=== PATIENT | male | born 1975 | race Hispanic/Latino ===

== ENCOUNTER 2023-04-04 17:05 | Emergency (ER) | payer BC, OTHER ==
[~2023-04-04] VITALS: Ht 180.3 cm; Wt 117.9 kg
[2023-04-04 18:10] VITALS: BP 145/78; PULSE 84; RESP 18; O2SAT 98
== END 2023-04-04 18:11 | disposition home or self-care (01) ==
LOC: EDH 17:05
DX: R03.0 Elevated blood-pressure reading, without diagnosis of hypertension (principal)
CPT/HCPCS: 99281

== ENCOUNTER 2024-07-08 11:18 | Emergency (ER) | payer BC ==
[~2024-07-08] VITALS: Ht 180.3 cm; Wt 120.2 kg
--- NOTE | 2024-07-08 11:25 | ERN ---
ED Note History of Present Illness Stated Complaint: NUMBNESS Chief Complaint: Numbness Time Seen by MD: 11:21 Dictation: PATIENT IS A 48-YEAR-OLD FEMALE COMING IN TODAY WITH COMPLAINTS OF HIS LEFT THIGH FEELING WARM AND NUMB ONSET YESTERDAY. HE DENIES ANY PAIN NO FEVER NO CHILLS NO NAUSEA VOMITING. LEG IS WARM TO TOUCH, STATES HE HAD A PRIOR VASCULAR SURGERY TO AN ARTERY SEVERAL YEARS AGO. STATES HE IS STATUS POST A VENTRAL HERNIA REPAIR IN [facility] AFTER HIS RELEASE COORDINATOR SENT HIM TO THE HOSPITAL IN [place]. DISTAL NEUROVASCULAR CMS INTACT TO LEFT LEG LEG IS WARM TO TOUCH NO SWELLING NO ERYTHEMA NO REDNESS Allergies: Coded Allergies: No Known Drug Allergies (Unverified Allergy, Unknown, 04/04/23) Past Medical History Past Medical History: No Pertinent History Additional Past Medical Hx: DENIES Surgical History: Other Surgical History Other: LEFT LEG BYPASS SURGERY AT AGE 18 RN Note Reviewed/Agreed w/PFSH: Yes Review of System Dictation CONSTITUTIONAL: NEGATIVE EXCEPT FOR HPI HEAD/FACE: NEGATIVE EXCEPT FOR HPI EENT: NEGATIVE EXCEPT FOR HPI RESPIRATORY: NEGATIVE EXCEPT FOR HPI GASTROINTESTINAL/ABDOMINAL: NEGATIVE EXCEPT FOR HPI GENITOURINARY: NEGATIVE EXCEPT FOR HPI MUSCULOSKELETAL: NEGATIVE EXCEPT FOR HPI LEFT LEG THIGH NUMBNESS FEELS WARM INTEGUMENTARY: NEGATIVE EXCEPT FOR HPI NEUROLOGICAL/PSYCH: NEGATIVE EXCEPT FOR HPI HEMATOLOGIC/LYMPHATIC: NEGATIVE EXCEPT FOR HPI ALL SYSTEMS NEGATIVE, EXCEPT NOTED ABOVE. 13 POINT REVIEW OF SYSTEMS ASSESSED AND ALL NEGATIVE EXCEPT FOR ABOVE. Initial Vital Sign VS Vital Signs Date Time Temp Pulse Resp B/P (MAP) Pulse Ox O2 Delivery O2 Flow Rate FiO2 07/08/24 11:21 98.2 94 18 119/95 98 07/08/24 12:43 Room Air* 0 21 Physical Exam Dictation VITAL SIGNS REVIEWED NO PAIN GENERAL APPEARANCE: ALERT, ORIENTED X 3, NO ACUTE DISTRESS, WELL DEVELOPED, NOURISHED. HEAD AND FACE: NON-TRAUMATIC. EYES: PERRL, PINK CONJUNCTIVAS, EYELID NO TRAUMA, ANTERIOR CHAMBER WITH ARCUS SENILIS. EARS: PINNAS INTACT AND NO SIGNS OF TRAUMA OR ERYTHEMA EAR CANALS CLEAR AND NO DISCHARGE TM NO ERYTHEMA NOSE: NO DISCHARGE, NO BLEEDING. OROPHARYNX: MOUTH NORMAL, TONGUE PINK, PHARYNX CLEAR,NO ERYTHEMA, TONSILS NO EXUDATES, NO ABSCESSES NOTED, MUCOUS MEMBRANE MOIST NECK: SUPPLE, NON-TENDER, NO THYROMEGALY, NO MASSES, NO JVD, NO BRUITS BREAST:DEFERRED CHEST:NO TENDERNESS, NO CREPITUS, NO PARADOXICAL MOVEMENT, NO RETRACTIONS LUNGS:CLEAR, WELL-VENTILATED, SYMMETRIC, NO RALES, NO WHEEZING, NO RHONCHI, NO STRIDOR, GOOD BREATH SOUNDS BILATERALLY HEART: REGULAR RATE, REGULAR RHYTHM, NO MURMUR, NO GALLOPS VASCULAR: NO PERIPHERAL EDEMA, DISTAL NEUROVASCULAR CMS INTACT TO LEFT LEG ABDOMEN: SOFT, POSITIVE BOWEL SOUNDS, NONDISTENDED, NO GUARDING, NONTENDER, NO REBOUND, NO MASSES NO HEPATOMEGALY, NO SPLENOMEGALY, NO KERN'S SIGN, NO HERNIAS. RECTAL: DEFERRED GENITAL: DEFERRED NEUROLOGICAL: NORMAL SPEECH, MOTOR FUNCTION INTACT, SENSORY FUNCTION INTACT MUSCULOSKELETAL: NECK NONTENDER, FULL RANGE OF MOTION, BACK NONTENDER, FULL RANGE OF MOTION, EXTREMITIES: NONTENDER, FULL RANGE OF MOTION LEFT LEG WARM TO TOUCH SKIN: COLOR PINK, DRY, NO TURGOR, NO RASH, NO LACERATIONS, NO ABRASIONS, NO CONTUSIONS. LYMPHATIC: DEFERRED Results (Laboratory/Radiology) Laboratory/Radiology Laboratory Tests Test 07/08/24 12:05 White Blood Count 9.2 K/uL (4.8-10.8) Red Blood Count 5.03 MIL/uL (4.50-6.20) Hemoglobin 15.0 g/dL (14.0-18.0) Hematocrit 43.7 % (42-54) Mean Corpuscular Volume 86.9 fL (79-99) Mean Corpuscular Hemoglobin 29.8 pg (27.0-33.0) Mean Corpuscular Hemoglobin Concent 34.3 g/dL (32.0-36.0) Red Cell Distribution Width 12.6 % (11.0-15.5) Platelet Count 239 K/uL (130-400) Mean Platelet Volume 11.1 fL (7.5-10.5) H Immature Granulocyte % (Auto) 0.3 % (0-1) Neutrophils (%) (Auto) 54.3 % (40.0-77.0) Lymphocytes (%) (Auto) 35.6 % (21.0-51.0) Monocytes (%) (Auto) 7.7 % (3.0-13.0) Eosinophils (%) (Auto) 1.7 % (0.0-8.0) Basophils (%) (Auto) 0.4 % (0.0-5.0) Neutrophils # (Auto) 5.0 K/uL (1.8-7.7) Lymphocytes # (Auto) 3.3 K/uL (1.0-4.8) Monocytes # (Auto) 0.7 K/uL (0.1-1.0) Eosinophils # (Auto) 0.16 K/uL (0.00-0.70) Basophils # (Auto) 0.04 K/uL (0.00-0.20) Absolute Immature Granulocyte (auto 0.03 K/uL (0-1) Nucleated Red Blood Cells 0.0 % (0.0-0.19) Sodium Level 140 mmol/L (136-145) Potassium Level 4.0 mmol/L (3.5-5.1) Chloride Level 103 mmol/L (101-111) Carbon Dioxide Level 28 mmol/L (21-32) Blood Urea Nitrogen 10 mg/dL (7-18) Creatinine 1.0 mg/dL (0.5-1.3) Glomerular Filtration Rate Calc 93 mL/min (>90) Random Glucose 133 mg/dL (70-105) H Total Calcium 8.7 mg/dL (8.5-10.1) TWELVE 20, ULTRASOUND DOPPLER OF LEFT LEG DEMONSTRATES TRIPHASIC FLOW FROM FEMORAL ARTERY TO FOOT. Labs Reviewed?: Yes ED Course ED Course Orders Procedure Category Date Status Time Us Arterial Unila Low US 07/08/24 Resulted Ext Dupl 11:22 Cbc With Differential LAB 07/08/24 Complete 11:22 Basic Metabolic Panel LAB 07/08/24 Complete 11:22 Vital Signs Date Time Temp Pulse Resp B/P (MAP) Pulse Ox O2 Delivery O2 Flow Rate FiO2 07/08/24 12:43 98.2 90 18 119/95 98 Room Air* 0 21 07/08/24 11:21 98.2 94 18 119/95 98 1232, PATIENT IS HEMODYNAMICALLY STABLE TRIPHASIC FLOW THROUGHOUT LEFT LEG. LABS UNREMARKABLE EXCEPT FOR HYPER GLYCEMIA. DISCHARGED HOME TO SEE HIS DOCTOR TUESDAY Medical Decision Making MDM MEDICAL DISCHARGE MAKING BASED ON ULTRASOUND DOPPLER LEFT LEG AND BASIC LABS. ULTRASOUND IS NEGATIVE WITH TRIPHASIC FLOW ONLY REMARKABLE LAP FINDING IS HYPERGLYCEMIA DISCHARGED HOME TO FOLLOW UP WITH HIS PRIMARY CARE DOCTOR IN 1-2 DAYS CONTINUE ALL MEDICATIONS AND TREATMENTS AT HOME DX & DISP Disposition: Discharge Departure Impression: Primary Impression: Paresthesia of left leg Additional Impression: Uncontrolled diabetes mellitus Condition: Stable Additional Instructions: FOLLOW-UP WITH PRIMARY CARE PROVIDER IN 1 TO 2 DAYS. TAKE MEDICATIONS DIRECTED HERE IN THE EMERGENCY ROOM. OKAY TO CONTINUE HOME MEDICATIONS UNLESS OTHERWISE DISCUSSED DURING YOUR VISIT IN THE EMERGENCY ROOM TODAY. RETURN TO YOUR NEAREST EMERGENCY ROOM IF SYMPTOMS WORSEN OR IF THERE IS NO IMPROVEMENT. CALL 911 IF YOU NEED IMMEDIATE ASSISTANCE. TAKE TYLENOL OR MOTRIN EUDG-QRV-RNIPTIV NEEDED AND IF NO CONTRAINDICATIONS ARE PRESENT. INCREASE ORAL HYDRATION. A WOUND CULTURE OR URINE CULTURE WAS ORDERED HERE IN THE EMERGENCY ROOM DEPARTMENT PLEASE FOLLOW-UP WITH PRIMARY CARE PROVIDER AND ADVISE THEM TO GET REPEAT PORTS FROM OUR FACILITY. IF YOU HAD ANY ROSALVA WRAP/SPLINTS THAT WERE APPLIED HERE, PLEASE DO NOT REMOVE THEM UNTIL YOU SEE YOUR PRIMARY CARE OR SPECIALTY. CONTINUE ALL MEDICATIONS AND TREATMENTS AT HOME, FOLLOW UP WITH YOUR PRIMARY CARE DOCTOR IN 1-2 DAYS FOR FOLLOW UP. Referrals: ADRIANNE YOO PA-C (PCP) Time of Disposition: 12:35 I have reviewed the case, and I agree with, Diagnosis and Plan ATTESTATION BY PHYSICIAN I PERFORMED THE SUBSTANTIVE PORTION OF THE VISIT. I HAVE REVIEWED AND PERSONALLY MADE AND APPROVED THE MANAGEMENT PLAN THAT IS DOCUMENTED IN THE NOTE BY MYSELF FOR THE A PP. I ACKNOWLEDGED FOR RESPONSIBILITY FOR THE PATIENT'S MANAGEMENT PLAN. IVAN CLEMONS NP Jul 08, 2024 11:25 RENE FRANCIS MD Jul 08, 2024 17:15
[2024-07-08 12:15] LABS: BASOPHILS # (AUTO) 0.04 K/uL (0.00-0.20); BASOPHILS % (AUTO) 0.4 % (0.0-5.0); EOSINOPHILS # (AUTO) 0.16 K/uL (0.00-0.70); EOSINOPHILS % (AUTO) 1.7 % (0.0-8.0); HEMATOCRIT 43.7 % (42-54); IMMATURE GRANULOCYTE ABSOLUTE 0.03 K/uL (0-1); LYMPHOCYTES # (AUTO) 3.3 K/uL (1.0-4.8); LYMPHOCYTES % (AUTO) 35.6 % (21.0-51.0); MEAN CORPUSCULAR HEMOGLOBIN 29.8 pg (27.0-33.0); MEAN CORPUSCULAR HGB CONC 34.3 g/dL (32.0-36.0); MEAN CORPUSCULAR VOLUME 86.9 fL (79-99); MONOCYTES # (AUTO) 0.7 K/uL (0.1-1.0); MONOCYTES % (AUTO) 7.7 % (3.0-13.0); NEUTROPHILS % (AUTO) 54.3 % (40.0-77.0); PLATELET COUNT (AUTO) 239 K/uL (130-400); RED BLOOD CELL COUNT(AUTO) 5.03 MIL/uL (4.50-6.20); RED CELL DISTRIBUTION WIDTH 12.6 % (11.0-15.5); WHITE BLOOD COUNT (AUTO) 9.2 K/uL (4.8-10.8)
--- NOTE | 2024-07-08 12:22 | HMCIMG ---
ULTRASOUND ARTERIAL DUPLEX LEFT LOWER EXTREMITY, UNILATERAL INDICATION: Left thigh pain. History of peripheral arterial disease with stent placement TECHNIQUE: Routine grayscale, color Doppler, and power Doppler ultrasound of the left lower extremity arteries were obtained. 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 Anterior Tibial 37 distally Posterior Tibial 70 Dorsalis Pedis 56 Triphasic flow along the left lower extremity arterial system. IMPRESSION: No evidence for high-grade flow-rate limiting stenosis. Parameters as reported.
[2024-07-08 12:43] VITALS: BP 119/95; PULSE 90; RESP 18; TEMP 98.2; O2SAT 98
== END 2024-07-08 12:45 | disposition home or self-care (01) ==
LOC: EDH 11:18
DX: R20.0 Anesthesia of skin (principal); M79.605 Pain in left leg; E11.65 Type 2 diabetes mellitus with hyperglycemia; Z98.890 Other specified postprocedural states
CPT/HCPCS: 36415; 80048; 85025; 93926; 99284

== ENCOUNTER 2024-07-14 15:53 | Emergency (ER) | payer BC ==
[~2024-07-14] VITALS: Ht 180.3 cm; Wt 120.2 kg
--- NOTE | 2024-07-14 16:24 | ERN ---
General Chief Complaint: Chest Pain Stated Complaint: FEVERS, BODYACHES, CP Time Seen by MD: 16:00 History of Present Illness Initial Comments 48-year-old male who presents for fever body aches. Patient reports he had an onset of fever and body aches beginning today. He denies any sore throat cough congestion vomiting diarrhea. He took a Tylenol at home prior to arrival. Of note, patient did have a laparoscopic hernia repair nine days ago in [place]. He denies any abdominal pain or tenderness currently. Medical history: Diabetes Allergies: Coded Allergies: No Known Drug Allergies (Unverified Allergy, Unknown, 04/04/23) Home Meds Active Scripts Amoxicillin/Potassium Clav (Amox Tr-K Clv 875-125 mg Tab) 875 Mg-125 Mg Tablet, 1 TAB PO BID for 10 Days, #20 TAB 0 Refills Prov:DIANE BARFIELD 07/14/24 Past Medical History Past Medical History: Diabetes-Type II Medical History Other: ABD HERNIA Past Surgical History: Other Surgical History Other: ABD HERNIA REPAIR ROS Dictation CONSTITUTIONAL: Fever EENT: No eye pain, no blurred vision, no tearing, no double vision, no ear pain, no ear discharge, no nose pain, no nasal congestion, no throat pain, no throat swelling, no mouth pain. RESPIRATORY: No cough, no orthopnea, no SOB, no stridor, no wheezing. CARDIOVASCULAR: No chest pain, no edema, no palpitations, no syncope. GASTROINTESTINAL/ABDOMINAL: No abdominal pain, no constipation, no diarrhea, no nausea, no vomiting. GENITOURINARY: No abnormal discharge, no dysuria, no frequent urination, no hematuria. No complaints of pain in the genitals. MUSCULOSKELETAL: No back pain, no gout, no joint pain, no joint swelling, no muscle pain, no muscle stiffness, no neck pain. INTEGUMENTARY: No change in color, no change in hair/nails, no dryness, no lesion, no lumps, no rash. NEUROLOGICAL/PSYCH: No anxiety, not depressed, no emotional problem, no headac he, no numbness, no pre-existing deficit, no history of seizures, no tremors, no weakness. HEMATOLOGIC/LYMPHATIC: Not anemic, no history of blood clots, no apparent bleeding, no bruising, glands not swollen. All Systems Negative, Except as Noted. Physical Exam Physical Exam Dictation VITAL SIGNS: Reviewed. GENERAL APPEARANCE: Alert, oriented x3, no acute distress, obese. HEAD AND FACE: Non-traumatic. EYES: PERRL, pink conjunctivas, eyelid no trauma, anterior chamber clear. EARS: Pinnas intact and no signs of trauma or erythema. Ear canals clear and no discharge. TMs no erythema. NOSE: No discharge, no bleeding. OROPHARYNX: Mouth normal, teeth no caries, tongue pink. Pharynx clear, no erythema. Tonsils no exudates, no abscesses noted. Mucous membrane moist. NECK: Supple, non-tender, no thyromegaly, no masses, no JVD, no bruits. BREAST: Deferred. CHEST: No tenderness, no crepitus, no paradoxical movement, no retractions. LUNGS: Clear, well-ventilated, symmetric, no rales, no wheezing, no rhonchi, no stridor, good breath sounds bilaterally. HEART: Regular rate, regular rhythm, no murmur, no gallops. VASCULAR: No peripheral edema. ABDOMEN: Soft, positive bowel sounds, nondistended, no guarding, nontender, no rebound, no masses no hepatomegaly, no splenomegaly, no Partt's sign, no hernias. RECTAL: Deferred. GENITAL: Deferred. NEUROLOGICAL: Normal speech, gross motor function intact, gross sensory function intact. MUSCULOSKELETAL: Neck nontender, full range of motion, back nontender, full range of motion. EXTREMITIES: Nontender, full range of motion. SKIN: Color pink, dry, no turgor, no rash, no lacerations, no abrasions, no contusions. LYMPHATICS: Deferred. Results Laboratory and Microbiology Lab and Micro Result Laboratory Tests Test 07/14/24 16:30 07/14/24 16:33 07/14/24 16:53 07/14/24 17:48 Influenza Type A Antigen Negative For Type A Influenza Type B Antigen Negative For Type B SARS-CoV-2 Antigen (Rapid) PRESUMPTIVE NEGATIVE White Blood Count 5.5 K/uL (4.8-10.8) Red Blood Count 4.79 MIL/uL (4.50-6.20) Hemoglobin 14.3 g/dL (14.0-18.0) Hematocrit 40.9 % (42-54) L Mean Corpuscular Volume 85.4 fL (79-99) Mean Corpuscular Hemoglobin 29.9 pg (27.0-33.0) Mean Corpuscular Hemoglobin Concent 35.0 g/dL (32.0-36.0) Red Cell Distribution Width 12.2 % (11.0-15.5) Platelet Count 177 K/uL (130-400) Mean Platelet Volume 11.1 fL (7.5-10.5) H Immature Granulocyte % (Auto) 0.4 % (0-1) Neutrophils (%) (Auto) 69.0 % (40.0-77.0) Lymphocytes (%) (Auto) 13.9 % (21.0-51.0) L Monocytes (%) (Auto) 14.5 % (3.0-13.0) H Eosinophils (%) (Auto) 1.8 % (0.0-8.0) Basophils (%) (Auto) 0.4 % (0.0-5.0) Neutrophils # (Auto) 3.8 K/uL (1.8-7.7) Lymphocytes # (Auto) 0.8 K/uL (1.0-4.8) L Monocytes # (Auto) 0.8 K/uL (0.1-1.0) Eosinophils # (Auto) 0.10 K/uL (0.00-0.70) Basophils # (Auto) 0.02 K/uL (0.00-0.20) Absolute Immature Granulocyte (auto 0.02 K/uL (0-1) Nucleated Red Blood Cells 0.0 % (0.0-0.19) Sodium Level 136 mmol/L (136-145) Potassium Level 3.8 mmol/L (3.5-5.1) Chloride Level 101 mmol/L (101-111) Carbon Dioxide Level 25 mmol/L (21-32) Blood Urea Nitrogen 9 mg/dL (7-18) Creatinine 0.9 mg/dL (0.5-1.3) Glomerular Filtration Rate Calc 106 mL/min (>90) Random Glucose 176 mg/dL (70-105) H Lactic Acid Level 2.8 mmol/L (0.8-2.5) H Total Calcium 8.5 mg/dL (8.5-10.1) Total Creatine Kinase 195 U/L (21-232) B-Type Natriuretic Peptide 6 pg/mL (0-100) Procalcitonin 0.07 ng/mL (0.05-0.5) Troponin I < 0.05 ng/mL (0.00-0.05) Urine Color LIGHT-YELLOW (YELLOW) Urine Appearance CLEAR (CLEAR) Urine pH 5.5 (5.0-8.0) Urine Specific [place] 1.029 (1.001-1.031) Urine Protein NEGATIVE mg/dL (NEGATIVE) Urine Glucose (UA) NEGATIVE mg/dL (NEGATIVE) Urine Ketones NEGATIVE mg/dL (NEGATIVE) Urine Occult Blood NEGATIVE (NEGATIVE) Urine Nitrate NEGATIVE (NEGATIVE) Urine Bilirubin NEGATIVE mg/dL (NEGATIVE) Urine Urobilinogen 0.2 mg/dL (0.2-1.0) Urine Leukocyte Esterase NEGATIVE [place]/uL Urine RBC 0-1 /HPF (0-1) Urine WBC 0-1 /HPF (0-1) Urine Bacteria None /HPF (None Seen) MDM CC: Fever or body aches Historian: Patient Comorbidities: Diabetes, recent laparoscopic hernia repair On clinical exam, abdomen is soft nontender nondistended. The wound from the laparoscopic hernia appears to be well healing. Limitations by social determinants of health: None Differential diagnosis includes sepsis, infection, viral URI, other. EKG: Sinus tachycardia rate 116 normal axis good R progression intervals stable no STEMI. Interpreted by me. CXR (independently interpreted by me): no focal infiltrates or abnormalities. CT Abdomen/pelvis with contrast (independently interpreted by me): I do not see any surgical pathology or free air. There is a bit of inflammation in the subcutaneous tissue near the hernia repair no obvious abscesses. Labs ( independently ordered and interpreted by me ): No leukocytosis, no shift or bands. Chemistry shows the lactic 2.8 otherwise unremarkable. Troponin normal procalcitonin normal BNP normal. Urinalysis normal. Flu SARS negative. Patient received 2 L normal saline and Toradol here in the ER. He also received a dose of Ativan IV because he is quite anxious to get the CT scan. There may be a bit of infection / inflammation at the subcutaneous area of the incision site from his hernia repair. No obvious abscesses. There is no other obvious source of infection, so we will treat with some antibiotics (Augmentin) that can cover skin complications. Patient is agreeable to this plan. We will DC. REASON: CHEST PAIN ORDERING PHYSICIAN: DIANE BARFIELD DO PROCEDURE: CXR1VW - CHEST 1VW INDICATION: CHEST PAIN TECHNIQUE: CHEST 1VW COMPARISON: None FINDINGS/IMPRESSION: No acute consolidation or pleural effusion. Cardiac silhouette is within normal limits. Mild degenerative changes of the spine. The visualized upper abdomen appears unremarkable. REASON: fever, recent hernia repair ORDERING PHYSICIAN: DIANE BARFIELD DO PROCEDURE: ABD PEL W - CT ABDOMEN/PELVIS W/CONTRAST CT ABDOMEN/PELVIS W/CONTRAST HISTORY: fever, recent hernia repair TECHNIQUE: CT ABDOMEN/PELVIS W/CONTRAST Omnipaque contrast was used. Oral contrast was not given. Coronal and sagittal reformats were obtained. CT was performed with one or more of the following dose reduction techniques: Automated exposure control, adjustment of the mA and/or kV according to the patient's size, or use of the iterative reconstruction technique. Comparison: None. FINDINGS: No pulmonary consolidation or pleural effusion is seen. There is hepatic steatosis. No calcified gallstone is seen. The spleen, pancreas, and adrenal glands are within normal limits. No hydronephrosis. The urinary bladder is partially distended. Subcutaneous fat stranding seen in the umbilical area which may may represent recent postoperative changes versus inflammatory/infectious changes. No drainable fluid collection is seen. There is no bowel obstruction. Normal appendix. Degenerative changes of the spine. Visualized aorta is normal in caliber. IMPRESSION: Subcutaneous fat stranding seen in the umbilical area which may may represent recent postoperative changes versus inflammatory/infectious changes. No drainable fluid collection is seen. ED Course Orders Procedure Category Date Status Time Vital Signs Per CPOE 07/14/24 Transmitted Routine 16:02 B-Type Natriuretic LAB 07/14/24 Complete Peptide 16:02 Chest 1vw RAD 07/14/24 Resulted 16:02 12 Lead Ekg Tracing- EKG 07/14/24 Logged Technical 16:02 Oxygen By Nc/Pulse Ox CPOE 07/14/24 Transmitted 16:02 Maintain Iv CPOE 07/14/24 Transmitted 16:02 Iv Insertion CPOE 07/14/24 Transmitted 16:02 Cardiac Monitoring CPOE 07/14/24 Transmitted 16:02 Pulse Oximetry With CPOE 07/14/24 Transmitted Vs And Prn 16:02 Cbc With Differential LAB 07/14/24 Complete 16:02 Activity: Br W/Brp CPOE 07/14/24 Transmitted With Assist 16:02 Creatine Kinase, Total LAB 07/14/24 Complete 16:02 Troponin Poc Order LAB 07/14/24 Complete Only 16:02 Bedside Troponin-I LAB.ER 07/14/24 Complete (Poc) 16:02 Basic Metabolic Panel LAB 07/14/24 Complete 16:02 Influenza Type A & B, LAB 07/14/24 Complete Rapid 16:10 Covid19 (Sars Antigen LAB 07/14/24 Complete Rapid) 16:10 Procalcitonin LAB 07/14/24 Complete 16:10 Blood Cult YOVANY 07/14/24 In Process 16:10 Lactic Acid LAB 07/14/24 Complete 16:10 Urinalysis LAB 07/14/24 Complete W/Microscopic 16:10 0.9%Nacl 1000ml (Ns PHA 07/14/24 Complete 1000ml) 16:30 Ketorolac PHA 07/14/24 Complete Tromethamine 15mg/Ml 16:30 Ct Abdomen/Pelvis CT 07/14/24 Resulted W/Contrast 16:21 Iohexol (Omnipaque) PHA 07/14/24 Complete 16:45 Lorazepam 2 Mg PHA 07/14/24 Complete (Ativan) 17:30 Current Medications Medications (Trade) Dose Ordered Sig/Jules Route PRN Reason Start Time Stop Time Status Last Admin Dose Admin Iohexol (Omnipaque) 75 ml STK-MED ONCE IV 07/14/24 16:45 07/14/24 16:45 DC Ketorolac Tromethamine (toRADol) 15 mg ONCE ONCE IV 07/14/24 16:30 07/14/24 16:31 DC 07/14/24 16:48 Lorazepam (AtiVAN) 1 mg ONCE ONCE IVP 07/14/24 17:30 07/14/24 17:31 DC 07/14/24 17:14 Sodium Chloride 2,000 ml @ 0 mls/hr ONCE ONCE IV 07/14/24 16:30 07/14/24 16:31 DC 07/14/24 16:48 Vital Signs Date Time Temp Pulse Resp B/P (MAP) Pulse Ox O2 Delivery O2 Flow Rate FiO2 07/14/24 18:18 97.5 99 18 129/82 98 Room Air* 0 07/14/24 16:56 114 18 114/74 95 Room Air* 0 07/14/24 16:54 99.7 114 20 135/95 0 Room Air* 0 07/14/24 15:58 99.5 116 18 137/91 97 Room Air 0 DX & DISP Disposition: Discharge Departure Impression: Primary Impression: Fever Additional Impression: Postoperative fever Condition: Stable Scripts Amoxicillin/Potassium Clav (Amox Tr-K Clv 875-125 mg Tab) 875 Mg-125 Mg Tablet 1 TAB PO BID for 10 Days, #20 TAB 0 Refills Prov: DIANE BARFIELD DO 07/14/24 Additional Instructions: There are no dangerous findings on your workup here today. Your lab work (CBC, BMP, lactic acid, procalcitonin, liver enzymes, troponin) is stable. The CT scan of your abdomen and pelvis does not show any intra-abdominal abnormalities. There is a bit of inflammation of the incision site. I have prescribed Augmentin, which is an antibiotic. Take twice per day. I recommend that you alternate 1000 mg of Tylenol and 800 mg of ibuprofen every 4 hours as needed for fever or discomfort. Please follow up with your primary doctor on Tuesday or Tuesday of next week if you continue with symptoms. Return to the emergency department as needed. Referrals: ADRIANNE YOO PA-C (PCP) DIANE BARFIELD DO Jul 14, 2024 16:24
--- NOTE | 2024-07-14 16:40 | NUR ---
PENDING GFR RESULTS, IV SITE, & CONSENT FOR CT EXAM.
[2024-07-14] MEDS ORDERED: IOHEXOL-350 75 ML VIAL IV ONE (16:45)
[2024-07-14] MEDS: ketOROlac 15MG/ML VIAL (15MG/ML) IV ONE (16:48)
[2024-07-14] MEDS: 0.9%NACL 1000ML 2,000 ML IV ONE (16:48)
[2024-07-14 16:55] LABS: BASOPHILS # (AUTO) 0.02 K/uL (0.00-0.20); BASOPHILS % (AUTO) 0.4 % (0.0-5.0); EOSINOPHILS % (AUTO) 1.8 % (0.0-8.0); HEMATOCRIT 40.9 % (42-54); IMMATURE GRANULOCYTE ABSOLUTE 0.02 K/uL (0-1); LYMPHOCYTES # (AUTO) 0.8 K/uL (1.0-4.8); LYMPHOCYTES % (AUTO) 13.9 % (21.0-51.0); MEAN CORPUSCULAR HEMOGLOBIN 29.9 pg (27.0-33.0); MEAN CORPUSCULAR VOLUME 85.4 fL (79-99); MONOCYTES # (AUTO) 0.8 K/uL (0.1-1.0); MONOCYTES % (AUTO) 14.5 % (3.0-13.0); NEUTROPHILS # (AUTO) 3.8 K/uL (1.8-7.7); PLATELET COUNT (AUTO) 177 K/uL (130-400); RED BLOOD CELL COUNT(AUTO) 4.79 MIL/uL (4.50-6.20); RED CELL DISTRIBUTION WIDTH 12.2 % (11.0-15.5); WHITE BLOOD COUNT (AUTO) 5.5 K/uL (4.8-10.8)
[2024-07-14 17:04] LABS: CREATININE 0.9 mg/dL (0.5-1.3); POTASSIUM 3.8 mmol/L (3.5-5.1)
[2024-07-14 17:10] LABS: COVID19 (SARS ANTIGEN RAPID) PRESUMPTIVE NEGATIVE (NEGATIVE); INFLUENZA TYPE A Negative For Type A (NEGATIVE); INFLUENZA TYPE B Negative For Type B (NEGATIVE)
[2024-07-14] MEDS: LORazepam 2 MG/ML 1 ML VIAL IVP ONE (17:14)
[2024-07-14 17:23] LABS: B-TYPE NATRIURETIC PEPTIDE 6 pg/mL (0-100)
--- NOTE | 2024-07-14 17:46 | HMCIMG ---
CT ABDOMEN/PELVIS W/CONTRAST HISTORY: fever, recent hernia repair TECHNIQUE: CT ABDOMEN/PELVIS W/CONTRAST Omnipaque contrast was used. Oral contrast was not given. Coronal and sagittal reformats were obtained. CT was performed with one or more of the following dose reduction techniques: Automated exposure control, adjustment of the mA and/or kV according to the patient's size, or use of the iterative reconstruction technique. Comparison: None. FINDINGS: No pulmonary consolidation or pleural effusion is seen. There is hepatic steatosis. No calcified gallstone is seen. The spleen, pancreas, and adrenal glands are within normal limits. No hydronephrosis. The urinary bladder is partially distended. Subcutaneous fat stranding seen in the umbilical area which may may represent recent postoperative changes versus inflammatory/infectious changes. No drainable fluid collection is seen. There is no bowel obstruction. Normal appendix. Degenerative changes of the spine. Visualized aorta is normal in caliber. IMPRESSION: Subcutaneous fat stranding seen in the umbilical area which may may represent recent postoperative changes versus inflammatory/infectious changes. No drainable fluid collection is seen.
--- NOTE | 2024-07-14 17:57 | HMCIMG ---
INDICATION: CHEST PAIN TECHNIQUE: CHEST 1VW COMPARISON: None FINDINGS/IMPRESSION: No acute consolidation or pleural effusion. Cardiac silhouette is within normal limits. Mild degenerative changes of the spine. The visualized upper abdomen appears unremarkable.
[2024-07-14 17:59] LABS: APPEARANCE,URINE CLEAR (CLEAR); BILIRUBIN,URINE NEGATIVE (NEGATIVE); COLOR,URINE LIGHT-YELLOW (YELLOW); GLUCOSE, URINE (UA) NEGATIVE (NEGATIVE); KETONES,URINE NEGATIVE (NEGATIVE); LEUKOCYTE ESTERASE ,URINE NEGATIVE Leu/uL (NEGATIVE); NITRATE,URINE NEGATIVE (NEGATIVE); OCCULT BLOOD,URINE NEGATIVE (NEGATIVE); PH,URINE 5.5 (5.0-8.0); PROTEIN,URINE NEGATIVE (NEGATIVE); UROBILINOGEN,URINE 0.2 mg/dL (0.2-1.0)
[2024-07-14 18:00] LABS: MUCUS,URINE RARE LPF (None Seen); RBC,URINE 0-1 /HPF (0-1); WBC,URINE 0-1 /HPF (0-1)
[2024-07-14] MEDS ORDERED: AMOX1TAB16 PO (18:07)
[2024-07-14 18:18] VITALS: BP 129/82; PULSE 99; RESP 18; TEMP 97.5; O2SAT 98
--- NOTE | 2024-07-16 07:32 | EKG ---
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
== END 2024-07-14 18:34 | disposition home or self-care (01) ==
LOC: EDH 15:53
DX: R50.82 Postprocedural fever (principal); E11.9 Type 2 diabetes mellitus without complications; Z20.822 Contact with and (suspected) exposure to COVID-19; Z98.890 Other specified postprocedural states
CPT/HCPCS: 99284; 74177; 96374; 71045; 96361; 96375; 87426; 82550; 84484; 80048; 83880; 85025; 87040 ×2; 87804 ×2; 83605; 81001; 36415; 93005; 84145; J7030; J2060; J1885; Q9967

== ENCOUNTER → 2024-08-03 | Outpatient (CLI) | payer OTHER ==
[~2024-08-03] MED LIST: AMOX1TAB16 PO
--- NOTE | 2024-08-03 10:49 | HMCIMG ---
CT CORONARY CALCIFICATION SCORING: Anatomic images were reviewed. The calcium score is being generated and reported separately. This report is for the visualized anatomy only. Visualized portions of the lungs are clear. Hilar and mediastinal structures appear normal. Osseous structures are unremarkable. Impression: 1. Negative noncardiac anatomic findings. 2. The calcium score is 4.9 consistent with a minimal degree of calcified plaque. This is 60 is percentile for a patient this age. CT was performed with one or more following dose reduction techniques: automated exposure control, adjustment of the mA and kv according to patient's size, or use of a iterative reconstruction technique.
== END | disposition home or self-care (01) ==
LOC: RAH 08:27
PROVIDERS: ATTEND Internal Medicine Cardiovascular Disease
DX: Z13.6 Encounter for screening for cardiovascular disorders (principal)
CPT/HCPCS: 75571

== ENCOUNTER 2025-05-21 21:19 | Emergency (ER) | payer BC, OTHER ==
[~2025-05-21] VITALS: Ht 180.3 cm; Wt 115.7 kg
[2025-05-21 21:36] VITALS: BP 117/88; PULSE 89; RESP 20; TEMP 98.2; O2SAT 97
--- NOTE | 2025-05-21 22:00 | ERN ---
General Chief Complaint: Knee Injury/Swelling Stated Complaint: C/O PAIN BEHIND LEFT KNEE Time Seen by MD: 21:22 Source: patient History of Present Illness Initial Comments Patient is a 49-year-old male coming in complaining of left knee pain. Patient is concerned because he had vascular surgery before believes it might be related to this. No trauma reported. Allergies: Coded Allergies: No Known Drug Allergies (Unverified Allergy, Unknown, 04/04/23) Home Meds Active Scripts Amoxicillin/Potassium Clav (Amox Tr-K Clv 875-125 mg Tab) 875 Mg-125 Mg Tablet, 1 TAB PO BID for 10 Days, #20 TAB 0 Refills Prov:DIANE BARFIELD DO 07/14/24 Past Medical History Past Medical History: Diabetes-Type II, Hypertension Medical History Other: ABD HERNIA Past Surgical History: Other Surgical History Other: LEFT KNEE SX ROS Dictation CONSTITUTIONAL: No chills, no fever, no weakness, no diaphoresis, no malaise. HEAD/FACE: No signs of trauma. EENT: No eye pain, no blurred vision, no tearing, no double vision, no ear pain, no ear discharge, no nose pain, no nasal congestion, no throat pain, no throat swelling, no mouth pain. RESPIRATORY: No cough, no orthopnea, no SOB, no stridor, no wheezing. CARDIOVASCULAR: No chest pain, no edema, no palpitations, no syncope. GASTROINTESTINAL/ABDOMINAL: No abdominal pain, no constipation, no diarrhea, no nausea, no vomiting. GENITOURINARY: No abnormal discharge, no dysuria, no frequent urination, no hematuria. No complaints of pain in the genitals. MUSCULOSKELETAL: No back pain, no gout, no joint pain, no joint swelling, no muscle pain, no muscle stiffness, no neck pain. INTEGUMENTARY: No change in color, no change in hair/nails, no dryness, no lesion, no lumps, no rash. NEUROLOGICAL/PSYCH: No anxiety, not depressed, no emotional problem, no headache, no numbness, no pre-existing deficit, no history of seizures, no tremors, no weakness. HEMATOLOGIC/LYMPHATIC: Not anemic, no history of blood clots, no apparent bleeding, no bruising, glands not swollen. All Systems Negative, Except as Noted. Physical Exam Physical Exam Dictation VITAL SIGNS: Reviewed. GENERAL APPEARANCE: Alert, oriented x3, no acute distress, obese. HEAD AND FACE: Non-traumatic. EYES: PERRL, pink conjunctivas, eyelid no trauma, anterior chamber clear. EARS: Pinnas intact and no signs of trauma or erythema. Ear canals clear and no discharge. TMs no erythema. NOSE: No discharge, no bleeding. OROPHARYNX: Mouth normal, teeth no caries, tongue pink. Pharynx clear, no erythema. Tonsils no exudates, no abscesses noted. Mucous membrane moist. NECK: Supple, non-tender, no thyromegaly, no masses, no JVD, no bruits. BREAST: Deferred. CHEST: No tenderness, no crepitus, no paradoxical movement, no retractions. LUNGS: Clear, well-ventilated, symmetric, no rales, no wheezing, no rhonchi, no stridor, good breath sounds bilaterally. HEART: Regular rate, regular rhythm, no murmur, no gallops. VASCULAR: No peripheral edema. ABDOMEN: Soft, positive bowel sounds, nondistended, no guarding, nontender, no rebound, no masses no hepatomegaly, no splenomegaly, no Pratt's sign, no hernias. RECTAL: Deferred. GENITAL: Deferred. NEUROLOGICAL: Normal speech, gross motor function intact, gross sensory function intact. MUSCULOSKELETAL: Neck nontender, full range of motion, back nontender, full range of motion. EXTREMITIES: Nontender, full range of motion. SKIN: Color pink, dry, no turgor, no rash, no lacerations, no abrasions, no contusions. LYMPHATICS: Deferred. Results Laboratory and Microbiology Labs Reviewed?: Yes EKG/XRAY/US/CT/MRI Ultrasound Comment Ultrasound artery left lower leg-tortuosity status post arterial surgery MDM MDM: Differential diagnosis: Knee Strain, wellness exam Rationale: Tests considered and ordered secondary to shared decision making include: Previous outside records reviewed: Old ER visits. Risk of complication and/or morbidity or mortality of patient management: None Medications-Per medication reconciliation Need for hospitalization: Patient does not meet criteria for hospitalization. Need for emergency major/minor surgery: No Patient is a 49-year-old male coming in complaining of left knee discomfort. Patient states that has been years ago he had arterial repair leg. Ultrasound does confirm some tortuosity but no decreased blood flow. I did advise him to follow up with cardiovascular for further evaluation. Patient will be discharged in stable condition. ED Course Orders Procedure Category Date Status Time Us Arterial Unila Low US 05/21/25 Taken Ext Dupl 21:28 Vital Signs Date Time Temp Pulse Resp B/P (MAP) Pulse Ox O2 Delivery O2 Flow Rate FiO2 05/21/25 21:36 98.2 89 20 117/88 97 Room Air* 0 21 05/21/25 21:21 98.2 89 20 117/88 97 Room Air DX & DISP Disposition: Discharge Departure Impression: Primary Impression: Status post peripheral artery angioplasty Condition: Stable Additional Instructions: FOLLOW-UP WITH PRIMARY CARE PROVIDER IN 1 TO 2 DAYS. TAKE MEDICATIONS DIRECTED HERE IN THE EMERGENCY ROOM. OKAY TO CONTINUE HOME MEDICATIONS UNLESS OTHERWISE DISCUSSED DURING YOUR VISIT IN THE EMERGENCY ROOM TODAY. RETURN TO YOUR NEAREST EMERGENCY ROOM IF SYMPTOMS WORSEN OR IF THERE IS NO IMPROVEMENT. CALL 911 IF YOU NEED IMMEDIATE ASSISTANCE. TAKE TYLENOL [id number] NEEDED AND IF NO CONTRAINDICATIONS ARE PRESENT. INCREASE ORAL HYDRATION. A WOU ND CULTURE OR URINE CULTURE WAS ORDERED HERE IN THE EMERGENCY ROOM DEPARTMENT PLEASE FOLLOW-UP WITH PRIMARY CARE PROVIDER AND ADVISE THEM TO GET REPORTS FROM OUR FACILITY. IF YOU HAD ANY ROSALVA WRAP/SPLINTS THAT WERE APPLIED HERE, PLEASE DO NOT REMOVE THEM UNTIL YOU SEE YOUR PRIMARY CARE OR SPECIALTY. Referrals: Referrals: NAVEEN العراقي (PCP) Time of Disposition: 22:36 RENE FRANCIS MD May 21, 2025 22:00
--- NOTE | 2025-05-21 22:53 | HMCIMG ---
EXAM: US Duplex Left Lower Extremity Arteries. CLINICAL HISTORY: Patient presents with left knee pain. TECHNIQUE: Real-time ultrasound scan of the arteries of the left lower extremity with 2-D siegel scale, color Doppler flow, and spectral waveform analysis. COMPARISON: Arterial Doppler dated July 08, 2024. FINDINGS: COMMON FEMORAL ARTERY: Peak systolic velocity 98 cm/sec. Triphasic waveform. No occlusion or significant stenosis. SUPERFICIAL FEMORAL ARTERY: Proximal peak systolic velocity 97 cm/sec. Triphasic waveform. Mid peak systolic velocity 83 cm/sec. Triphasic waveform. Distal peak systolic velocity 78 cm/sec. Triphasic waveform. No occlusion or significant stenosis. POPLITEAL ARTERY: Proximal peak systolic velocity 83 cm/sec. Triphasic waveform. Mid peak systolic velocity 31 cm/sec. Triphasic waveform. Distal peak systolic velocity 60 cm/sec. Triphasic waveform. Calcified rhoades with mild dilatation and tortuosity in the mid and distal segments. No flow-limiting stenosis. CALF ARTERIES: Posterior tibial artery peak systolic velocity 90 cm/sec. Triphasic waveform. Anterior tibial artery peak systolic velocity 122 cm/sec. Monophasic waveform. Peroneal artery peak systolic velocity 80 cm/sec. Triphasic waveform. Dorsalis pedis artery peak systolic velocity 116 cm/sec. Monophasic waveform. Hyperemia in the left anterior tibial and dorsalis pedis arteries, new since the prior examination. IMPRESSION: No flow-limiting stenosis or occlusion in the left lower extremity arteries. Hyperemia in the left anterior tibial and dorsalis pedis arteries with elevated PSV and monophasic flow, new since the prior examination. Mild dilatation and tortuosity of the mid and distal left popliteal arteries with calcified rhoades. /[place]
== END 2025-05-21 22:44 | disposition home or self-care (01) ==
LOC: EDH 21:19
DX: M25.562 Pain in left knee (principal); E11.9 Type 2 diabetes mellitus without complications; I10 Essential (primary) hypertension; Z98.62 Peripheral vascular angioplasty status
CPT/HCPCS: 93926; 99284

== ENCOUNTER 2025-06-29 23:49 | Emergency (ER) | payer BC ==
[~2025-06-29] VITALS: Ht 180.3 cm; Wt 115.7 kg
[2025-06-29 23:50] VITALS: TEMP 97.6
[2025-06-30] MEDS: 0.9%NACL 1000ML 1,000 ML IV ONE (00:15)
--- NOTE | 2025-06-30 00:20 | EKG ---
[facility] Test Date: 2025-06-30 Test Time: 00:12:15 Pat Name: TAQUERIA HARVEY Department: ED Room: Gender: [employer] Att[employer]: [id number] : 1975 Requested By: MERY HOYOS Order Number: [id number] Reading MD: Christiano Hawkins Measurements Intervals [place] Rate: 74 P: 10 KS: 145 QRS: 39 QRSD: 80 T: 30 QT: 369 QTc: 409 Interpretive Statements Sinus rhythm Compared to ECG 07/14/2024 16:01:59 Sinus tachycardia no longer present Electronically Signed On 06-30-2025 09:30:11 [employer] by Christiano Hawkins Please click the below link to view image of tracing.
[2025-06-30 00:39] LABS: CREATININE 0.9 mg/dL (0.5-1.3); GLOMERULAR FILTR. RATE CALC 105.0 mL/min (>90); GLUCOSE,RANDOM 99.0 mg/dL (70-105); SODIUM SERUM 138.0 mmol/L (136-145); UREA NITROGEN, BLOOD 12.0 mg/dL (7-18)
[2025-06-30 00:50] LABS: IMMATURE GRANULOCYTE ABSOLUTE 0.02 K/uL (0-1); NUCLEATED RED BLOOD CELLS 0.0 % (0.0-0.19); PLATELET COUNT (AUTO) 194 K/uL (130-400); RED BLOOD CELL COUNT(AUTO) 4.53 MIL/uL (4.50-6.20); RED CELL DISTRIBUTION WIDTH 12.5 % (11.0-15.5); WHITE BLOOD COUNT (AUTO) 9.5 K/uL (4.8-10.8)
[2025-06-30 01:01] VITALS: BP 133/87; PULSE 96; RESP 18; O2SAT 97
--- NOTE | 2025-06-30 01:23 | HMCIMG ---
EXAM: X-Ray Chest, 1 view. CLINICAL HISTORY: Sob. COMPARISON: None. FINDINGS: Poor inspiratory effort. The lungs show no infiltrate or other acute findings. No pleural effusion or pneumothorax. The cardiomediastinal silhouette is within normal limits. No acute osseous abnormality. IMPRESSION: No acute cardiopulmonary pathology is evident. /[place]
--- NOTE | 2025-06-30 01:38 | ERN ---
ED Note History of Present Illness Stated Complaint: HEADACHE, HTN AT HOME 144/95 Chief Complaint: Headache Time Seen by MD: 23:50 Time Seen by Midlevel: 23:50 Dictation: The patient is a 49-year-old male with a history of hypertension, diabetes who presents to the emergency department with left-sided headache and elevated blood pressure at home onset prior to arrival. Patient reports blood pressure was 144/95 the highest. Patient reported an episode of dizziness on his way over here but reports that the dizziness has resolved. Patient reports compliant with a blood pressure medication. Denies any fevers, upper respiratory s ymptoms, chest pain or shortness of breath. Denies any nausea or vomiting. Denies any head trauma or falls. Allergies: Coded Allergies: No Known Drug Allergies (Unverified Allergy, Unknown, 04/04/23) Home Meds Active Scripts Amoxicillin/Potassium Clav (Amox Tr-K Clv 875-125 mg Tab) 875 Mg-125 Mg Tablet, 1 TAB PO BID for 10 Days, #20 TAB 0 Refills Prov:DIANE BARFIELD Benjamin GERMAN 07/14/24 Past Medical History Past Medical History: Diabetes-Type II, Hypertension Additional Past Medical Hx: ABD HERNIA Surgical History: Other Surgical History Other: LEFT LEG RN Note Reviewed/Agreed w/PFSH: Yes Review of System Dictation Constitutional: Negative for fever,chills, and weight loss Eyes: Negative for injury, pain,redness, and discharge ENT: Negative for injury,pain or swelling Cardiovascular: Negative for chest pain, palpitations, and edema Respiratory: Negative for shortness of breath, cough, and wheezing, Abdomen/GI: Negative for abdominal pain, nausea, vomiting, diarrhea, and constipation Back: Negative for injury and pain : Negative for injury, bleeding and discharge MS/Extremity: Negative for injury and deformity Skin: Negative for rash, and discoloration Neuro: Negative for weakness, numbness, tingling, and seizure positive for headache Psych: Negative for suicide ideation, homicidal ideation, and hallucinations Initial Vital Sign VS Vital Signs Date Time Temp Pulse Resp B/P (MAP) Pulse Ox O2 Delivery O2 Flow Rate FiO2 06/29/25 23:50 97.5 73 16 143/97 97 Room Air 06/30/25 00:00 0 21 Physical Exam Dictation Vital Signs reviewed General Appearance: Alert, oriented x 3, no acute distress, well developed, nourished. Head and Face: non-traumatic. Eyes: PERRL, pink conjunctivas, eyelid no trauma, anterior chamber with arcus senilis. Ears: Pinnas intact and no signs of trauma or erythema ear canals clear and no discharge TM no erythema Nose: No discharge, no bleeding. Oropharynx: Mouth normal, tongue pink. pharynx clear,no erythema, tonsils no exudates, no abscesses noted, mucous membrane moist Neck: Supple, non-tender, no thyromegaly, no masses, no JVD, no bruits Breast:Deferred Chest:No tenderness, no crepitus, no paradoxical movement, no retractions Lungs:Clear, well-ventilated, symmetric, no rales, no wheezing, no rhonchi, no stridor, good breath sounds bilaterally Heart: Regular rate, regular rhythm, no murmur, no gallops Vascular: no peripheral edema, Abdomen: Soft, positive bowel sounds, nondistended, no guarding, nontender, no rebound, no masses no hepatomegaly, no splenomegaly, no Prtat's sign, no hernias. Rectal: Deferred Genital: Deferred Neurological: Normal speech, motor function intact, sensory function intact , upper extremities equal in strength, lower extremities equal in strength, no facial droop, no slurred speech Musculoskeletal: Neck nontender, full range of motion, back nontender, full range of motion, Extremities: nontender, full range of motion Skin: Color pink, dry, no turgor, no rash, no lacerations, no abrasions, no contusions. Lymphatic: Deferred Results (Laboratory/Radiology) Laboratory/Radiology Laboratory Tests Test 06/30/25 00:13 White Blood Count 9.5 K/uL (4.8-10.8) Red Blood Count 4.53 MIL/uL (4.50-6.20) Hemoglobin 13.3 g/dL (14.0-18.0) L Hematocrit 40.0 % (42-54) L Mean Corpuscular Volume 88.3 fL (79-99) Mean Corpuscular Hemoglobin 29.4 pg (27.0-33.0) Mean Corpuscular Hemoglobin Concent 33.3 g/dL (32.0-36.0) Red Cell Distribution Width 12.5 % (11.0-15.5) Platelet Count 194 K/uL (130-400) Mean Platelet Volume 11.0 fL (7.5-10.5) H Immature Granulocyte % (Auto) 0.2 % (0-1) Neutrophils (%) (Auto) 46.0 % (40.0-77.0) Lymphocytes (%) (Auto) 42.9 % (21.0-51.0) Monocytes (%) (Auto) 7.9 % (3.0-13.0) Eosinophils (%) (Auto) 2.7 % (0.0-8.0) Basophils (%) (Auto) 0.3 % (0.0-5.0) Neutrophils # (Auto) 4.4 K/uL (1.8-7.7) Lymphocytes # (Auto) 4.1 K/uL (1.0-4.8) Monocytes # (Auto) 0.8 K/uL (0.1-1.0) Eosinophils # (Auto) 0.26 K/uL (0.00-0.70) Basophils # (Auto) 0.03 K/uL (0.00-0.20) Absolute Immature Granulocyte (auto 0.02 K/uL (0-1) Nucleated Red Blood Cells 0.0 % (0.0-0.19) Sodium Level 138 mmol/L (136-145) Potassium Level 3.5 mmol/L (3.5-5.1) Chloride Level 100 mmol/L (101-111) L Carbon Dioxide Level 27 mmol/L (21-32) Blood Urea Nitrogen 12 mg/dL (7-18) Creatinine 0.9 mg/dL (0.5-1.3) Glomerular Filtration Rate Calc 105 mL/min (>90) Random Glucose 99 mg/dL (70-105) Total Calcium 8.6 mg/dL (8.5-10.1) Troponin I High Sensitivity 7 ng/L (4-75) REASON: sob ORDERING PHYSICIAN: MERY HOYOS PROCEDURE: CXR1VW - CHEST 1VW EXAM: X-Ray Chest, 1 view. CLINICAL HISTORY: Sob. COMPARISON: None. FINDINGS: Poor inspiratory effort. The lungs show no infiltrate or other acute findings. No pleural effusion or pneumothorax. The cardiomediastinal silhouette is within normal limits. No acute osseous abnormality. IMPRESSION: No acute cardiopulmonary pathology is evident. /[place] Labs Reviewed?: Yes EKG: (+) rhythm (Sinus) EKG Comment: Date:06/30/2025 Time:0012 Ventricular rate:74 [place] interval:145 QRS duration:80 QT/QTc:369/409 EKG interpretation: Sinus rhythm Reviewed by ED Attending no STEMI ED Course ED Course Orders Procedure Category Date Status Time Cbc With Differential LAB 06/30/25 Complete 00:04 Chest 1vw RAD 06/30/25 Resulted 00:04 12 Lead Ekg Tracing- EKG 06/30/25 Complete Technical 00:04 0.9%Nacl 1000ml (Ns PHA 06/30/25 Complete 1000ml) 00:30 Troponin I High LAB 06/30/25 Complete Sensitivity 00:04 Basic Metabolic Panel LAB 06/30/25 Complete 00:04 Acetaminophen 500mg PHA 06/30/25 Complete Tab (Tylenol 500mg T 00:30 Ketorolac PHA 06/30/25 Complete Tromethamine 30mg/Ml 01:00 Current Medications Medications (Trade) Dose Ordered Sig/Jules Route PRN Reason Start Time Stop Time Status Last Admin Dose Admin Acetaminophen (TYLenol 500MG TAB) 1,000 mg ONCE ONCE PO 06/30/25 00:30 06/30/25 00:31 DC Ketorolac Tromethamine (toRADol) 30 mg ONCE ONCE IVP 06/30/25 01:00 06/30/25 01:02 DC 06/30/25 01:06 Sodium Chloride 1,000 ml @ 0 mls/hr ONCE ONCE IV 06/30/25 00:30 06/30/25 00:31 DC 06/30/25 00:15 Vital Signs Date Time Temp Pulse Resp B/P (MAP) Pulse Ox O2 Delivery O2 Flow Rate FiO2 06/30/25 01:01 96 18 133/87 97 Room Air* 0 21 06/30/25 00:00 77 18 138/89 98 Room Air* 0 21 06/29/25 23:50 97.5 73 16 143/97 97 Room Air Medical Decision Making MDM The patient is a 49-year-old male with a history of hypertension, diabetes who presents to the emergency department with left-sided headache and elevated blood pressure at home onset prior to arrival. Patient reports blood pressure was 144/95 the highest. Patient reported an episode of dizziness on his way over here but reports that the dizziness has resolved. Patient reports compliant with a blood pressure medication. Denies any fevers, upper respiratory symptoms, chest pain or shortness of breath. Denies any nausea or vomiting. Denies any head trauma or falls. CBC showed no leukocytosis, mild anemia, chemistry showed mild hypochloremia, negative troponins. Chest x-ray showed no acute pathology. Patient received IV fluids and pain medication. At this time patient reports no longer having a h eadache. Denies any dizziness. Patient's blood pressure is in the 130 systolic. Patient continues neurologically intact, in no acute distress. We will discharge patient to follow up with PCP. Differential diagnosis: Hypertensive urgency, migraine headache, dehydration, ACS Need for hospitalization: Patient does not meet criteria for hospitalization. There are no social concerns with this patient. DX & DISP Disposition: Discharge Departure Impression: Primary Impression: Headache Additional Impression: Elevated blood pressure reading Condition: Stable Additional Instructions: Your labs were unremarkable. Your chest x-ray was normal. Please continue taking your blood pressure medications. Follow up with the primary doctor in 1- 2 days. If anything worsens please return to ER. FOLLOW-UP WITH PRIMARY CARE PROVIDER IN 1 TO 2 DAYS. TAKE MEDICATIONS DIRECTED HERE IN THE EMERGENCY ROOM. OKAY TO CONTINUE HOME MEDICATIONS UNLESS OTHERWISE DISCUSSED DURING YOUR VISIT IN THE EMERGENCY ROOM TODAY. RETURN TO YOUR NEAREST EMERGENCY ROOM IF SYMPTOMS WORSEN OR IF THERE IS NO IMPROVEMENT. CALL 911 IF YOU NEED IMMEDIATE ASSISTANCE. TAKE TYLENOL [id number] NEEDED AND IF NO CONTRAINDICATIONS ARE PRESENT. INCREASE ORAL HYDRATION. A WOUND CULTURE OR URINE CULTURE WAS ORDERED HERE IN THE EMERGENCY ROOM DEPARTMENT PLEASE FOLLOW-UP WITH PRIMARY CARE PROVIDER AND ADVISE THEM TO GET REPEAT PORTS FROM OUR FACILITY. IF YOU HAD ANY ROSALVA WRAP/SPLINTS THAT WERE APPLIED HERE, PLEASE DO NOT REMOVE THEM UNTIL YOU SEE YOUR PRIMARY CARE OR SPECIALTY. Referrals: NAVEEN العراقي (PCP) Time of Disposition: 01:38 I have reviewed the case, and I agree with, Diagnosis and Plan MERY HOYOS [facility] Jun 30, 2025 01:38
== END 2025-06-30 01:51 | disposition home or self-care (01) ==
LOC: EDH 23:49
DX: R51.9 Headache, unspecified (principal); I10 Essential (primary) hypertension; E11.9 Type 2 diabetes mellitus without complications; Z79.899 Other long term (current) drug therapy; Z98.890 Other specified postprocedural states
CPT/HCPCS: 99284; 84484; 80048; 85025; 36415; 96374; 71045; 93005; J1885; J7030